=== PATIENT | female | born 2000 | race African-American/Black ===

== ENCOUNTER 2025-02-07 19:56 | Emergency (ER) | payer BC ==
[~2025-02-07] VITALS: Ht 160 cm; Wt 78.9 kg
[2025-02-08] MEDS ORDERED: LIDOCAINE 1% INJ 50 ML MDV IJ ONE (00:06)
[2025-02-08] MEDS ORDERED: RABIES VACCINE (PCEC)/PF 1 EA KIT IM ONE (00:07)
[2025-02-08] MEDS ORDERED: TDAP [DIPH/PERTUSSIS/TET] 0.5 ML VIAL IM ONE (00:15)
[2025-02-08] MEDS: RABIES IMMUNE GLOBULIN/PF 150 UNIT/ML VIAL IM ONE (00:36)
[2025-02-08] MEDS: RABIES VACCINE (PCEC)/PF 1 EA KIT IM ONE (00:37)
[2025-02-08] MEDS: LIDOCAINE /MPF 1% VIAL 5 ML VIAL IJ ONE (00:46)
[2025-02-08] MEDS ORDERED: AMOX-430 PO (00:55)
[2025-02-08] MEDS: TDAP [DIPH/PERTUSSIS/TET] 0.5 ML VIAL IM ONE (01:10)
[2025-02-08 01:19] VITALS: BP 150/98; TEMP 98.6; O2SAT 98
== END 2025-02-08 01:48 | disposition home or self-care (01) ==
LOC: ER 20:01
DX: S41.011A Laceration without foreign body of right shoulder, initial encounter (principal); W54.0XXA Bitten by dog, initial encounter; Y93.01 Activity, walking, marching and hiking; Y92.89 Other specified places as the place of occurrence of the external cause; Y99.8 Other external cause status
CPT/HCPCS: 99284; 90375; 90675; 90472; 96372; 90471; 90715; A6403 ×2; J3490